=== PATIENT | female | born 1985 | race African-American/Black ===

== ENCOUNTER 2017-03-02 18:35 | Emergency (ER) | payer OTHER ==
[~2017-03-02] VITALS: Ht 160 cm; Wt 86.2 kg
[2017-03-02 18:42] VITALS: BP 125/67
[2017-03-02] MEDS ORDERED: DIPHTH,PERTUSS(ACELL),TET TOX 0.5 ML DISP.SYRIN. VAX IM ONE (19:00)
[2017-03-02] MEDS ORDERED: ACETAMINOPHEN/CODEINE 300/30MG TABLET. PO ONE (19:00)
[2017-03-02] MEDS ORDERED: LIDOCAINE 1% / SOD BICARB 8.4% 20 ML VIAL. IJ ONE (19:00)
[2017-03-02] MEDS ORDERED: ACET-704 PO (19:08)
[2017-03-02] MEDS ORDERED: SULF1TAB24 PO (19:08)
[2017-03-02] MEDS ORDERED: PRED50TA PO (19:08)
--- NOTE | 2017-03-02 19:08 | PHYS DOC ---
Past Medical History Past Medical History: No Pertinent History Past Surgical History: No Surgical History Alcohol Use: None Drug Use: None Adult General Chief Complaint Chief Complaint: INSECT BITE HPI HPI Patient is a 31 year old female who presents with an area of cellulitis on the right thigh that she believes is from an insect bite yesterday. Review of Systems Review of Systems Constitutional: Denies fever or chills [] Eyes: Denies change in visual acuity, redness, or eye pain [] Musculoskeletal: Denies back pain or joint pain [] Integument: cellulitis on the right thigh Neurologic: Denies headache, focal weakness or sensory changes [] Endocrine: Denies polyuria or polydipsia [] Current Medications Current Medications Current Medications Medications (Trade) Dose Ordered Sig/Wilma Start Time Stop Time Status Last Admin Dose Admin Acetaminophen/ Codeine Phosphate (Tylenol #3) 1 tab 1X ONCE 03/02/17 19:00 03/02/17 19:01 UNV 03/02/17 19:01 1 TAB Diphtheria/ Tetanus/Acell Pertussis (Boostrix) 0.5 ml ONCE ONCE 03/02/17 19:00 03/02/17 19:01 UNV 03/02/17 19:02 0.5 ML Lidocaine/Sodium Bicarbonate (Buffered Lidocaine 1%) 20 ml 1X ONCE 03/02/17 19:00 03/02/17 19:01 UNV Physical Exam Physical Exam Constitutional: Well developed, well nourished, no acute distress, non-toxic appearance. [] HENT: Normocephalic, atraumatic, bilateral external ears normal, oropharynx moist, no oral exudates, nose normal. [] Eyes: PERRLA, EOMI, conjunctiva normal, no discharge. [] Skin: Right lateral thigh with an area of cellulitis approximately 3 x 3 cm. The area has a blister in the middle. The area is warm tender to touch but not fluctuant. Back: No tenderness, no CVA tenderness. [] Extremities: No tenderness, no cyanosis, no clubbing, ROM intact, no edema. [] Neurologic: Alert and oriented X 3, normal motor function, normal sensory function, no focal deficits noted. [] Psychologic: Affect normal, judgement normal, mood normal. [] Current Patient Data Vital Signs Vital Signs Date Time Temp Pulse Resp B/P (MAP) Pulse Ox O2 Delivery O2 Flow Rate FiO2 03/02/17 19:01 18 Room Air 03/02/17 18:42 99.0 80 100 99.0 EKG EKG [] Radiology/Procedures Radiology/Procedures [] Course & Med Decision Making Course & Med Decision Making Pertinent Labs and Imaging studies reviewed. (See chart for details) Patient has cellulitis to the right thigh that could have occurred from an insect bite. Discharged with Bactrim prednisone and instructed to take Benadryl or Zyrtec. Instructed to keep the area clean and dry. She was given tetanus in the ED. Provided return precautions. Dragon Disclaimer Dragon Disclaimer This electronic medical record was generated, in whole or in part, using a voice recognition dictation system. Departure Departure Impression: Primary Impression: Cellulitis of hip, right Additional Impression: Insect bite of hip, right Disposition: 01 HOME, SELF-CARE Condition: STABLE Referrals: UNKNOWN PCP NAME (PCP) Follow-up with your own doctor in 1-2 weeks Patient Instructions: Cellulitis, Insect Bite, [id number] Additional Instructions: You were seen for cellulitis of the right hip from an insect bite. Complete your antibiotics. Take the prescribed medicines as ordered. Keep the area clean and dry. Follow-up with your doctor in 1-2 weeks. Scripts Prednisone (PREDNISONE) 50 Mg Tablet 1 TAB PO DAILY, #5 TAB Prov: CLARE CLEVELAND APRN 03/02/17 Acetaminophen With Codeine (TYLENOL WITH CODEINE #3 TABLET) 1 Each Tablet 1 TAB PO PRN Q6HRS Y for PAIN, #30 TAB Prov: CLARE CLEVELAND APRN 03/02/17 Sulfamethoxazole/Trimethoprim (BACTRIM DS TABLET) 1 Each Tablet 1 TAB PO BID, #20 TAB Prov: CLARE CLEVELAND APRN 03/02/17 Problem Qualifiers Additional Impression: Insect bite of hip, right Encounter type: initial encounter Qualified Codes: S70.261A - Insect bite ( nonvenomous), right hip, initial encounter; W57.XXXA - Bitten or stung by nonvenomous insect and other nonvenomous arthropods, initial encounter CLARE CLEVELAND APRN Mar 02, 2017 19:08
== END 2017-03-02 19:24 | disposition home or self-care (01) ==
LOC: ER 18:35
DX: L03.115 Cellulitis of right lower limb (principal)
CPT/HCPCS: 90471; 90715; 99283-25